=== PATIENT | male | born 1970 | race Caucasian/White ===

== ENCOUNTER 2021-09-20 00:23 | Emergency (ER) | payer OTHER ==
[2021-09-20] MEDS ORDERED: LISI20TA30 PO (03:59)
== END 2021-09-20 01:00 ==
LOC: SED 00:23
DX: Z02.83 Encounter for blood-alcohol and blood-drug test (principal)

== ENCOUNTER 2021-09-20 02:36 | Emergency (ER) | payer OTHER ==
[~2021-09-20] VITALS: Ht 172.7 cm; Wt 113.4 kg
[2021-09-20 02:36] VITALS: BP_SYST 117
[2021-09-20 02:50] VITALS: BP_SYST 120
[2021-09-20] MEDS ORDERED: LISI20TA30 PO (03:59)
== END 2021-09-20 02:50 ==
LOC: SED 02:36
DX: I10 Essential (primary) hypertension (principal)
CPT/HCPCS: 99283